=== PATIENT | male | born 1945 | race Caucasian/White ===

== ENCOUNTER 2018-06-18 13:28 | Outpatient (CLI) | payer MEDICARE, BC, OTHER ==
[2018-06-18 15:34] LABS: #Eosinphils 0.1 thou/uL (0.0-0.7); #Lymphocytes 1.7 thou/uL (1.20-3.40); #Monocytes 0.5 thou/uL (0.11-0.59); #Neutrophils 3.6 thou/uL (1.40-6.50); %Basophils 0.6 % (0.0-1.0); %Eosinophils 1.8 % (0.0-10.0); %Lymphocytes 28.6 % (21.0-51.0); Hemoglobin 15.1 g/dL (14.0-18.0); Mean Corpuscular HGB CONC 33.4 g/dL (32.0-36.0); Mean Corpuscular Hemoglobin 31.7 pg (27.0-31.0); Mean Corpuscular Volume 94.7 fL (78.0-98.0); Mean Platelet Volume 6.9 fL (7.4-10.4); Platelet Count 239 thou/uL (130-400); RBC Distribution Width 12.2 % (11.5-14.5); Red Blood Cell (RBC) Count 4.78 mill/uL (4.70-6.10)
[2018-06-18 15:54] LABS: ALT (SGPT) 22 U/L (8-55); AST (SGOT) 23 U/L (5-34); Albumin 4.7 g/dL (3.4-4.8); Alkaline Phosphatase 68 U/L (40-150); Anion Gap 11 mmol/L (10-20); BUN (Urea Nitrogen) 14 mg/dL (8.4-25.7); Calc. Creatinine Clearance 0 mL/min (70-130); Calcium 10.1 mg/dL (7.8-10.44); Carbon Dioxide 28 mmol/L (23-31); Cardiac Risk 3.1 (Less than 4.5); Chloride 102 mmol/L (98-107); Cholesterol 157 mg/dl (< 200 Desired); Estimated GFR-MDRD 62; Glucose 89 mg/dL (83-110); HDL Cholesterol 51 mg/dL (>60 Neg Risk); LDL Cholesterol, Calculated 91 mg/dL; Potassium 4.3 mmol/L (3.5-5.1); Protein, Total 7.7 g/dL (5.8-8.1); Sodium 137 mmol/L (136-145); Triglycerides 76 mg/dL (Less than 150)
== END 2018-06-18 13:29 | disposition home or self-care (01) ==
LOC: LABBT 13:28
PROVIDERS: ATTEND Internal Medicine Cardiovascular Disease
DX: Z01.812 Encounter for preprocedural laboratory examination (principal); R94.39 Abnormal result of other cardiovascular function study
CPT/HCPCS: 80053; 80061; 85025

== ENCOUNTER 2018-06-23 05:53 | Observation (INO) | payer MEDICARE, BC, OTHER ==
[2018-06-23] MEDS ORDERED: Heparin 10,000 UNITS/1 ML VIAL ONE (06:34)
[2018-06-23] MEDS ORDERED: Lidocaine 1% (PF) 30 ML VIAL ONE (06:49)
[2018-06-23] MEDS ORDERED: Fentanyl 100 MCG/2 ML VIAL ONE (07:04)
[2018-06-23] MEDS ORDERED: Midazolam HCl 2 mg/2 ml Vial ONE (07:05)
[2018-06-23] MEDS ORDERED: Nitroglycerin 100MG/250ML BOT 250 ML ONE (07:25)
[2018-06-23] MEDS ORDERED: Bivalirudin 250 MG VIAL ONE (07:31)
[2018-06-23] MEDS ORDERED: Clopidogrel Bisulfate 300 MG TAB ONE (07:31)
[2018-06-23] MEDS ORDERED: Nitroglycerin 0.4 MG TAB (25 Tab Bottle) SL PRN (08:31)
[2018-06-23] MEDS ORDERED: Sodium Chloride 0.9% 1,000 ML IV SCH (08:45)
[2018-06-23] MEDS ORDERED: Lisinopril 10 MG TAB PO SCH (09:00)
[2018-06-23] MEDS ORDERED: Iopamidol 370 76% 50 ML VIAL FS ONE (13:12)
[2018-06-23] MEDS ORDERED: Iopamidol 370 76% 100 ML VIAL ONE (13:12)
[2018-06-23 14:52] VITALS: BMI 24.5
[2018-06-23] MEDS: Lisinopril 10 MG TAB PO SCH (14:56)
[2018-06-23] MEDS: Clopidogrel Bisulfate 75 MG TAB PO SCH (14:56)
[2018-06-23] MEDS: Aspirin 81 mg Enteric Coated Tablet PO SCH (14:56)
[2018-06-23] MEDS: Dronedarone HCl 400 MG TAB PO SCH (17:12)
[2018-06-23] MEDS ORDERED: Atorvastatin Calcium 40 MG TAB PO SCH (21:00)
--- NOTE | 2018-06-23 21:15 | CCL ---
PROCEDURE: Left heart catheterization, selective left coronary arteriography, left ventriculography, intracoronary nitroglycerin, stent placement in the mid to distal LAD (bare metal stent). INDICATION: Nonsustained ventricular tachycardia on pacemaker and abnormal cardiac PET scan. Patient was brought to cardiac laborer plumbing. The right groin was prepped and draped in usual fashion. 1% lidocaine was infiltrated. A 6-Macedonian sheath was inserted into the right femoral artery. Heparin 3000 units given. A Macedonian angulated pigtail was inserted pressure obtained. Left ventriculogram was performed using 30 mL of contrast at 12 mL per second in an ANN 30 degree projection. Pressure obtained. Pigtail was removed. A 6-Macedonian Ranulfo left 4 followed by 6-Macedonian Ranulfo right 4 was used for coronary arteriography. A 6-Macedonian Ranulfo left 4 guide catheter was inserted. The patient was given Angiomax and Plavix 600 mg p.o. Aspirin 324 mg was given. A floppy choice wire was advanced to the distal LAD. The area was predilated with Emerge 2.5 x 20 mm balloon at low pressures. Rebel 2.25 x 24 mm stent was then positioned and deployed. Rebel 3.5 x 16 mm stent was then positioned overlapping this and deployed. The mid portion of the stent was postdilated with Emerge NC 3.5 x 8 mm balloon. Final result was excellent. A 6-Macedonian sheath was later changed for 7-Macedonian sheath due to bleeding around the sheath. The patient was then transferred to the PCU. RESULTS: PRESSURES: Aorta 138/78, mean 104. Left ventricle 134/12. LEFT VENTRICULOGRAM: There was mild anterior hypokinesis. Ejection fraction of 50-55%. CORONARY ARTERIOGRAPHY: 1. Left main was normal. 2. The LAD had a 40% mid stenosis, 80% mid stenosis and then 80% distal stenosis. 3. The circumflex was small and normal. 4. The right coronary artery had a 20% mid stenosis and a 20% distal stenosis. INTERVENTION RESULTS: The initial mid and distal LAD lesions were 80%, final lesion to 0%. IMPRESSION: 1. One vessel coronary artery disease (LAD). 2. Mild left ventricular dysfunction. 3. Successful bare metal stent placement in the mid to distal LAD. [facility]
[2018-06-24 06:07] LABS: #Eosinphils 0.1 thou/uL (0.0-0.7); #Lymphocytes 1.2 thou/uL (1.20-3.40); #Monocytes 0.7 thou/uL (0.11-0.59); #Neutrophils 3.7 thou/uL (1.40-6.50); %Basophils 0.1 % (0.0-1.0); %Eosinophils 2.6 % (0.0-10.0); %Lymphocytes 21.4 % (21.0-51.0); %Monocytes 11.5 % (0.0-10.0); %Neutrophils 64.4 % (42.0-75.0); Hemoglobin 13.3 g/dL (14.0-18.0); Mean Corpuscular HGB CONC 32.1 g/dL (32.0-36.0); Mean Corpuscular Hemoglobin 30.5 pg (27.0-31.0); Mean Corpuscular Volume 95.2 fL (78.0-98.0); Platelet Count 231 thou/uL (130-400); Red Blood Cell (RBC) Count 4.35 mill/uL (4.70-6.10); White Blood Cell (WBC) Count 5.8 thou/uL (4.8-10.8)
[2018-06-24 06:13] LABS: ALT (SGPT) 15 U/L (8-55); AST (SGOT) 17 U/L (5-34); Albumin 3.9 g/dL (3.4-4.8); Alkaline Phosphatase 67 U/L (40-150); Anion Gap 12 mmol/L (10-20); BUN (Urea Nitrogen) 10 mg/dL (8.4-25.7); Bilirubin, Total 0.8 mg/dL (0.2-1.2); Calc. Creatinine Clearance 61 mL/min (70-130); Calcium 9.4 mg/dL (7.8-10.44); Carbon Dioxide 25 mmol/L (23-31); Chloride 104 mmol/L (98-107); Estimated GFR-MDRD 63; Globulin 2.7 g/dL (2.4-3.5); Glucose 118 mg/dL (83-110); Potassium 4.5 mmol/L (3.5-5.1); Protein, Total 6.6 g/dL (5.8-8.1); Sodium 136 mmol/L (136-145)
[2018-06-24 08:15] VITALS: BP 160/96; TEMP 97.7
[2018-06-24] MEDS: Aspirin 81 mg Enteric Coated Tablet PO SCH (08:40)
[2018-06-24] MEDS: Lisinopril 10 MG TAB PO SCH (08:40)
[2018-06-24] MEDS: Dronedarone HCl 400 MG TAB PO SCH (08:40)
[2018-06-24] MEDS: Clopidogrel Bisulfate 75 MG TAB PO SCH (08:40)
[2018-06-24] MEDS ORDERED: Lisinopril 10 MG TAB PO SCH (09:00)
--- NOTE | 2018-06-24 09:30 | DIS ---
DATE OF ADMISSION: 06/23/2018 DATE OF DISCHARGE: 06/24/2018 DISCHARGE DIAGNOSES: 1. Nonsustained ventricular tachycardia seen on pacemaker transtelephonic followup. 2. Distal anterior and apical ischemia on cardiac PET. 3. Placement of bare metal stent in the mid to distal LAD. 4. Paroxysmal atrial fibrillation up to 5 hours on pacemaker. 5. Status post dual-chamber pacemaker placement. 6. Status post atrial flutter ablation. 7. Hypertension. 8. Hypercholesterolemia with last LDL of 81 on simvastatin. DISCHARGE MEDICATIONS: The patient will resume Eliquis 5 mg b.i.d. on the evening of discharge, Ecotrin 81 daily, Plavix 75 mg daily x1 month, atorvastatin 40 mg daily, Multaq 400 mg b.i.d., lisinopril 10 mg b.i.d., metoprolol XL 50 mg daily, nitroglycerin p.r.n. DISCHARGE DISPOSITION: The patient will be seen in 3 months for followup with fasting lipid profile and complete metabolic profile being performed and also pacemaker check. HOSPITAL COURSE: Mr. Real was noted to have nonsustained ventricular tachycardia on routine transtelephonic pacemaker check. He underwent a cardiac PET scan with the above results. He underwent cardiac catheterization. There was mild anterior hypokinesis with ejection fraction of 50%-55%. There was a 40 % mid LAD, 80% mid LAD and 80% distal LAD stenosis. The circumflex was small and normal. The right coronary artery had a 20% mid stenosis and 20% distal stenosis. The patient underwent placement of a bare metal stent, because of the need for long-term anticoagulation with paroxysmal atrial fibrillation. Rebel 2.25 x 24 and 3.5 x 16 were inserted in the mid to distal LAD with excellent result. He was observed overnight and then discharged. In general, his LDLs in the past have been in the 80s-90s on simvastatin. This was discontinued and instead he was placed on atorvastatin. [facility]
--- NOTE | 2018-06-26 10:29 | EKG ---
Test Reason : POST STENTS X2-LAD Blood Pressure : / mmHG Vent. Rate : 060 BPM Atrial Rate : 060 BPM P-R Int : 000 ms QRS Dur : 096 ms QT Int : 454 ms P-R-T Axes : 003 050 085 degrees QTc Int : 454 ms Electronic atrial pacemaker Long first degree AV block When compared with ECG of 02-JAN-2016 22:33, Electronic atrial pacemaker has replaced Electronic ventricular pacemaker Confirmed by DR. Agus GAUTHIER ([id number]) on 06/26/2018 10:28:52 AM Referred By: BERT Confirmed By:DR. Agus GAUTHIER
--- NOTE | 2018-06-26 10:34 | EKG ---
Test Reason : Blood Pressure : / mmHG Vent. Rate : 067 BPM Atrial Rate : 066 BPM P-R Int : 000 ms QRS Dur : 096 ms QT Int : 440 ms P-R-T Axes : 000 034 079 degrees QTc Int : 464 ms Electronic atrial pacemaker Long first degree AV block When compared with ECG of 23-JUN-2018 09:00, (Unconfirmed) No significant change was found Confirmed by DR. Agus GAUTHIER ([id number]) on 06/26/2018 10:34:04 AM Referred By: BERT Confirmed By:DR. Agus GAUTHIER
== END 2018-06-24 10:23 | disposition home or self-care (01) ==
LOC: CCL 05:53 → 2SW 14:28
PROVIDERS: ADMIT Internal Medicine Cardiovascular Disease; ATTEND Internal Medicine Cardiovascular Disease
PROC: 02703DZ Dilation of Coronary Artery, One Artery with Intraluminal Device, Percutaneous Approach (ICD-10-PCS; principal; 2018-06-23)
PROC: 4A023N7 Measurement of Cardiac Sampling and Pressure, Left Heart, Percutaneous Approach (ICD-10-PCS; 2018-06-23)
PROC: B2111ZZ Fluoroscopy of Multiple Coronary Arteries using Low Osmolar Contrast (ICD-10-PCS; 2018-06-23)
DX: I25.10 Atherosclerotic heart disease of native coronary artery without angina pectoris (principal); I48.0 Paroxysmal atrial fibrillation; I48.92 Unspecified atrial flutter; I47.2 Ventricular tachycardia; E78.00 Pure hypercholesterolemia, unspecified; I10 Essential (primary) hypertension; Z79.01 Long term (current) use of anticoagulants; Z79.899 Other long term (current) drug therapy; Z88.2 Allergy status to sulfonamides; Z95.1 Presence of aortocoronary bypass graft
CPT/HCPCS: 80053; 85025; 85347 ×2; 92928; 93005 ×2; 93458; 96360; 96361; C1725; C1769 ×2; C1876; C1887; G0378; 36415; 93010; 99152; 99153; J0583; J1644; J2001; J2250; J3010

== ENCOUNTER 2018-09-14 09:30 | Emergency (ER) | payer MEDICARE, BC, OTHER ==
--- NOTE | 2018-09-14 10:32 | RAD ---
LEFT FOOT RADIOGRAPHS THREE VIEWS: Date: 09-14-18 Provided Clinical History: Left foot pain without known injury. FINDINGS: There is no evidence for fracture or other acute osseous abnormality. If there is persistent clinical concern, conservative management and follow up imaging are advised. IMPRESSION: As above. POS: [facility]
== END 2018-09-14 10:50 | disposition home or self-care (01) ==
LOC: SCSER 09:30
DX: M79.81 Nontraumatic hematoma of soft tissue (principal); Z79.899 Other long term (current) drug therapy

== ENCOUNTER 2021-05-21 10:24 | Outpatient (CLI) | payer MEDICARE, BC, OTHER | END 2021-05-21 10:25 | disposition home or self-care (01) | LOC: BICRAD 10:24 | PROVIDERS: ATTEND Internal Medicine Cardiovascular Disease | DX: I42.8 Other cardiomyopathies (principal); I25.10 Atherosclerotic heart disease of native coronary artery without angina pectoris; I48.0 Paroxysmal atrial fibrillation | CPT/HCPCS: 71046 ==

== ENCOUNTER 2021-09-12 12:01 | Outpatient (CLI) | payer MEDICARE, BC, OTHER | END 2021-09-12 12:02 | disposition home or self-care (01) | LOC: MRI 12:01 | PROVIDERS: ATTEND Psychiatry & Neurology Neurology | DX: R26.9 Unspecified abnormalities of gait and mobility (principal); Z86.73 Personal history of transient ischemic attack (TIA), and cerebral infarction without residual deficits | CPT/HCPCS: 70551 ==

== ENCOUNTER 2022-12-12 09:45 | Outpatient (CLI) | payer MEDICARE, BC, OTHER | END 2022-12-12 09:46 | disposition home or self-care (01) | LOC: BICRAD 09:45 | PROVIDERS: ATTEND Internal Medicine Cardiovascular Disease | DX: I48.0 Paroxysmal atrial fibrillation (principal); J98.4 Other disorders of lung; E78.00 Pure hypercholesterolemia, unspecified; E03.9 Hypothyroidism, unspecified | CPT/HCPCS: 36415; 71046; 80053; 80061; 84443 ==

== ENCOUNTER 2024-06-16 11:06 | Outpatient (CLI) | payer MEDICARE, OTHER | END 2024-06-16 11:07 | disposition home or self-care (01) | LOC: RAD 11:06 | PROVIDERS: ATTEND Nurse Practitioner Family | DX: I48.0 Paroxysmal atrial fibrillation (principal); J44.9 Chronic obstructive pulmonary disease, unspecified; J92.9 Pleural plaque without asbestos; J98.4 Other disorders of lung | CPT/HCPCS: 36415; 71046; 80053; 80061; 84443 ==